=== PATIENT | male | born 2005 | race Caucasian/White ===

== ENCOUNTER 2025-03-09 07:52 | Day surgery (SDC) | payer MEDICARE ==
[~2025-03-09] VITALS: Ht 175.3 cm; Wt 107.9 kg
[~2025-03-09 07:52] MED LIST: LATU1TAB PO; NEXI20CA PO; ZOLO50TA PO
[2025-03-09] MEDS ORDERED: LIDOCAINE 2% 100 MG/5 ML SDV (FOR ANES.) As Ordered ONE (07:53)
[2025-03-09] MEDS ORDERED: ROCURONIUM BROMIDE 50MG/5ML VIAL As Ordered ONE (07:53)
[2025-03-09] MEDS ORDERED: ONDANSETRON 4MG/2ML VIAL As Ordered ONE (07:53)
[2025-03-09] MEDS ORDERED: MIDAZOLAM INJ 2 MG/2 ML VIAL As Ordered ONE (07:53)
[2025-03-09] MEDS ORDERED: dexAMETHasone 4 MG/ML 1 ML VIAL As Ordered ONE (07:53)
[2025-03-09] MEDS ORDERED: ACETAMINOPHEN 1000MG/100ML IV BAG As Ordered ONE (07:54)
[2025-03-09] MEDS ORDERED: SUGAMMADEX SODIUM 200 MG/2 ML VIAL As Ordered ONE (07:57)
[2025-03-09] MEDS ORDERED: KETOROLAC 30 MG/ML 1 ML VIAL As Ordered ONE (07:57)
[2025-03-09] MEDS ORDERED: LR 1,000 ML IV SCH (08:15)
[2025-03-09] MEDS ORDERED: CHLORHEXIDINE GLUCONATE 0.12% 15 ML UDC As Ordered ONE (08:25)
[2025-03-09] MEDS: dexAMETHasone 4 MG/ML 1 ML VIAL IV ONE (08:45)
[2025-03-09] MEDS: AMPICILLIN SOD/SULBACTAM SOD 3 GM in DEXTROSE 5% (D5W) MINI-BAG PLU 100 ML IV ONE (08:50)
[2025-03-09] MEDS ORDERED: HYDROMORPHONE HCL 0.5 MG/0.5 ML SYRINGE IV PRN (09:25)
[2025-03-09] MEDS ORDERED: MORPHINE 2 MG/ML 1 ML VIAL IV PRN (09:25)
[2025-03-09 10:49] VITALS: BP 125/62; TEMP 97.1; O2SAT 97
== END 2025-03-09 10:53 | disposition home or self-care (01) ==
LOC: M SDC 07:52
PROVIDERS: ATTEND Dentist
DX: K01.1 Impacted teeth (principal); K08.89 Other specified disorders of teeth and supporting structures; K21.9 Gastro-esophageal reflux disease without esophagitis; F41.9 Anxiety disorder, unspecified; I49.9 Cardiac arrhythmia, unspecified; Z79.899 Other long term (current) drug therapy; Z91.0110 Allergy to milk products, unspecified
CPT/HCPCS: 88300; 93005; D7210; D7220; J0131; J0295; J0666; J1100; J1885; J2250; J2405; J3010